=== PATIENT | male | born 1965 | race Caucasian/White ===

== ENCOUNTER 2024-01-12 05:16 | Day surgery (SDC) | payer MEDICAID ==
[~2024-01-12] VITALS: Ht 165.1 cm; Wt 81.8 kg
[~2024-01-12 05:16] MED LIST: MOXIFLOXACIN HCL 0.5% 3 ML OPHTHALMIC SOLUTION ONE; PHENYLEPHRINE HCL 2.5% 2 ML OPHTHALMIC SOLUTION ONE; RINGERS SOLUTION,LACTATED 500 ML IV ONE; TETRACAINE HCL/PF 0.5% 4 ML OPHTHALMIC SOLUTION ONE
[2024-01-12] MEDS: PHENYLEPHRINE HCL 2.5% 2 ML OPHTHALMIC SOLUTION OD ONE (05:58)
[2024-01-12] MEDS: RINGERS SOLUTION,LACTATED 500 ML IV ONE (05:58)
[2024-01-12] MEDS: TETRACAINE HCL/PF 0.5% 4 ML OPHTHALMIC SOLUTION OD ONE (05:59)
[2024-01-12] MEDS: MOXIFLOXACIN HCL 0.5% 3 ML OPHTHALMIC SOLUTION OD ONE (05:59)
[2024-01-12] MEDS ORDERED: EPINEPHrine 1:1,000 [1 MG/ML] VIAL ONE (06:15)
[2024-01-12] MEDS ORDERED: MOXIFLOXACIN HCL 0.5% 3 ML OPHTHALMIC SOLUTION ONE (06:21)
[2024-01-12] MEDS ORDERED: PrednisoLONE ACETATE 1% 5 ML OPHTHALMIC SUSPENSION ONE (06:22)
[2024-01-12] MEDS ORDERED: LIDOCAINE/PF 1% 30 ML VIAL ONE (06:34)
[2024-01-12] MEDS ORDERED: ACETAMINOPHEN 325 MG TABLET PO PRN (07:00)
[2024-01-12] MEDS ORDERED: BALANCED SALT 15 ML OPHTHALMIC IRRIG.SOLN ONE (07:17)
[2024-01-12] MEDS: BALANCED SALT 15 ML OPHTHALMIC IRRIG.SOLN ONE (10:12)
[2024-01-12] MEDS: LIDOCAINE 2%/EPI 1:200,000/PF 20 ML VIAL ONE (10:13)
[2024-01-12] MEDS: LIDOCAINE/PF 1% 2 ML VIAL ONE (10:13)
[2024-01-12] MEDS: MitoMYcin 0.2 MG/VIAL KIT FOR OPHTHALMIC USE OD ONE (10:14)
[2024-01-12] MEDS: POVIDONE-IODINE 5% 30 ML OPHTHALMIC SOLUTION ONE (10:15)
[2024-01-12] MEDS: NEOMYCIN/POLYMYXIN B/DEXAMETH 3.5 GM OPHTHALMIC OINTMENT ONE (10:15)
[2024-01-12] MEDS: TETRACAINE HCL/PF 0.5% 4 ML OPHTHALMIC SOLUTION ONE (10:16)
[2024-01-12] MEDS ORDERED: GLYCOPYRROLATE 0.2 MG/ML VIAL IM ONE (12:00)
[2024-01-12] MEDS ORDERED: FentaNYL CITRATE PF 100 MCG/2 ML VIAL IVP ONE (12:00)
[2024-01-12] MEDS ORDERED: MIDAZOLAM HCL 2 MG/2 ML VIAL IVP ONE (12:00)
== END 2024-01-12 08:35 | disposition home or self-care (01) ==
LOC: SURGERY 05:16
PROVIDERS: ATTEND Ophthalmology
DX: H11.041 Peripheral pterygium, stationary, right eye (principal); M19.90 Unspecified osteoarthritis, unspecified site; E66.3 Overweight; R94.31 Abnormal electrocardiogram [ECG] [EKG]; Z87.891 Personal history of nicotine dependence; Z98.818 Other dental procedure status
CPT/HCPCS: 93005; 65426; J0171; J3010; J3490; J2250; J7120; V2790